=== PATIENT | female | born 1940 | race Asian ===

== ENCOUNTER 2017-01-14 07:36 | Day surgery (SDC) | payer MEDICARE, OTHER ==
[~2017-01-14] VITALS: Ht 157.5 cm; Wt 66.4 kg
[~2017-01-14 07:36] MED LIST: DiphenhydrAMINE HCL 50 MG/ML VIAL IVP ONE; SODIUM CHLORIDE 0.9% 1,000 ML IV ONE; SODIUM CHLORIDE 0.9% 1,000 ML IV SCH
[2017-01-14 07:59] LABS: BASOPHILS # (AUTO) 0.06 K/uL (0.00-0.20); BASOPHILS % (AUTO) 0.7 % (0.0-2.0); EOSINOPHILS % (AUTO) 6.06 % (1.0-6.0); LYMPHOCYTES # (AUTO) 1.3 K/uL (1.0-4.8); LYMPHOCYTES % (AUTO) 12.8 % (22.0-44.0); MEAN CORPUSCULAR HEMOGLOBIN 28.5 pg (26.0-34.0); MEAN CORPUSCULAR HGB CONC 32.3 G/dL (31.0-37.0); MEAN CORPUSCULAR VOLUME 88 fL (80-100); MONOCYTES # (AUTO) 0.7 K/uL (0.1-1.0); MONOCYTES % (AUTO) 6.8 % (2.0-9.0); NEUTROPHILS # (AUTO) 7.3 K/uL (1.8-7.7); NEUTROPHILS % (AUTO) 73.6 % (40.0-70.0); PLATELET COUNT (AUTO) 373 K/uL (150-450); RED CELL DISTRIBUTION WIDTH 14.7 % (11.5-14.5)
[2017-01-14] MEDS ORDERED: OMEP20 PO (08:04)
[2017-01-14] MEDS ORDERED: ASPI81 PO (08:04)
[2017-01-14] MEDS ORDERED: ATOR20TA86 PO (08:04)
[2017-01-14] MEDS ORDERED: CALC-1038 PO (08:04)
[2017-01-14] MEDS ORDERED: AMLO-511 PO (08:04)
[2017-01-14] MEDS ORDERED: [UNRECOGNIZED DRUG - OTHER] PO (08:04)
[2017-01-14] MEDS ORDERED: KDUR20 PO (08:04)
[2017-01-14] MEDS ORDERED: METF500T4 PO (08:04)
[2017-01-14] MEDS ORDERED: METO50 PO (08:04)
[2017-01-14] MEDS ORDERED: [UNRECOGNIZED DRUG - OTHER] OU (08:04)
[2017-01-14] MEDS ORDERED: BLINK EYE OU (08:04)
[2017-01-14] MEDS ORDERED: LOSA50TA37 PO (08:04)
[2017-01-14] MEDS ORDERED: OLOP2.5D5 OU (08:04)
[2017-01-14] MEDS ORDERED: CLOP75 PO (08:04)
[2017-01-14] MEDS ORDERED: INSLAN SQ (08:04)
[2017-01-14] MEDS ORDERED: FURO20 PO (08:04)
[2017-01-14] MEDS ORDERED: HYDR-2924 PO (08:04)
[2017-01-14] MEDS ORDERED: ALPR0.5T8 PO (08:04)
[2017-01-14 08:08] LABS: PROTHROMBIN TIME 10.9 SEC (9.4-11.6)
[2017-01-14 08:19] LABS: CALCIUM, TOTAL 8.9 mg/dL (8.8-10.5); CREATININE 1.54 mg/dL (0.60-1.30); POTASSIUM 3.9 mmol/L (3.5-5.1)
[2017-01-14 08:33] LABS: ALBUMIN 3.8 g/dL (3.4-5.0); BILIRUBIN,TOTAL 0.7 mg/dL (0.1-1.0); THYROID STIMULATING HORMONE 2.34 uIU/mL (0.36-3.74); TOTAL PROTEIN, SERUM 8.3 g/dL (6.4-8.2)
[2017-01-14] MEDS ORDERED: BENZOCAINE 20% 50 MCG/SPRAY 57 GM ONE (09:27)
[2017-01-14] MEDS ORDERED: FentaNYL CITRATE-PF 100 MCG/2 ML VIAL ONE (09:28)
[2017-01-14] MEDS ORDERED: MIDAZOLAM HCL 2 MG/2 ML VIAL ONE ×2 (09:28→10:15)
[2017-01-14 09:30] VITALS: BP 148/72
[2017-01-14] MEDS ORDERED: FentaNYL CITRATE-PF 100 MCG/2 ML VIAL IVP ONE (10:15)
[2017-01-14] MEDS ORDERED: BENZOCAINE 20% 11.9 GM GEL TP ONE ×2 (10:15→10:30)
[2017-01-14] MEDS ORDERED: MIDAZOLAM HCL 2 MG/2 ML VIAL IVP ONE ×3 (10:15→10:30)
[2017-01-14] MEDS ORDERED: BENZOCAINE 20% 50 MCG/SPRAY 57 GM TP ONE ×2 (10:30→10:45)
== END 2017-01-14 12:55 | disposition home or self-care (01) ==
LOC: CATHLAB 07:36
PROVIDERS: ATTEND Internal Medicine Interventional Cardiology
DX: I48.91 Unspecified atrial fibrillation (principal); I34.0 Nonrheumatic mitral (valve) insufficiency; I36.1 Nonrheumatic tricuspid (valve) insufficiency; I73.9 Peripheral vascular disease, unspecified; Z95.1 Presence of aortocoronary bypass graft; E11.9 Type 2 diabetes mellitus without complications; Z79.01 Long term (current) use of anticoagulants
CPT/HCPCS: 36415; 71010; 80053; 84443; 85025; 85610; 85730; 93005; 93312; 93325; J2250; J3010; J7030

== ENCOUNTER 2017-04-16 09:03 | Day surgery (SDC) | payer MEDICARE, OTHER ==
[~2017-04-16] VITALS: Ht 157.5 cm; Wt 65.0 kg
[~2017-04-16 09:03] MED LIST changes: +ALPR0.5T8 PO; +AMLO-511 PO; +ASPI81 PO; +ATOR20TA86 PO; +BLINK EYE OU; +CALC-1038 PO; +CLOP75 PO; -DiphenhydrAMINE HCL 50 MG/ML VIAL IVP ONE; +FURO20 PO; +HYDR-2924 PO; +INSLAN SQ; +KDUR20 PO; +LOSA50TA37 PO; +METF500T4 PO; +METO50 PO; +OLOP2.5D5 OU; +OMEP20 PO; -SODIUM CHLORIDE 0.9% 1,000 ML IV ONE; -SODIUM CHLORIDE 0.9% 1,000 ML IV SCH; +[UNRECOGNIZED DRUG - OTHER] OU; +[UNRECOGNIZED DRUG - OTHER] PO
[2017-04-16] MEDS ORDERED: 0.9% SODIUM CHLORIDE 10 ML SYRINGE IVP ONE (09:10)
[2017-04-16] MEDS ORDERED: 0.9% SODIUM CHLORIDE 10 ML SYRINGE IVP PRN (09:30)
[2017-04-16] MEDS ORDERED: METOPROLOL TARTRATE 50 MG TABLET PO ONE (09:30)
[2017-04-16] MEDS ORDERED: METOPROLOL TARTRATE 50 MG TABLET ONE (09:48)
[2017-04-16 09:56] LABS: CREATININE 1.64 mg/dL (0.60-1.30); POTASSIUM 3.8 mmol/L (3.5-5.1)
[2017-04-16] MEDS ORDERED: IOVERSOL 350 MG/ML 100 ML VIAL ONE (11:04)
[2017-04-16] MEDS ORDERED: METOPROLOL TARTRATE 5 MG/5 ML VIAL ONE (11:08)
[2017-04-16] MEDS ORDERED: NITROGLYCERIN 400 MCG/SUBLINGUAL SPRAY 4.9 GM BOTTLE SL ONE (11:13)
[2017-04-16] MEDS ORDERED: METOPROLOL TARTRATE 5 MG/5 ML VIAL IVP ONE ×2 (11:19→11:24)
== END 2017-04-16 12:15 | disposition home or self-care (01) ==
LOC: SURGERY 09:03 → EDSTATUS 11:00 → SURGERY 12:15
PROVIDERS: ATTEND Internal Medicine Interventional Cardiology
DX: I48.91 Unspecified atrial fibrillation (principal); I77.89 Other specified disorders of arteries and arterioles; I20.9 Angina pectoris, unspecified; I10 Essential (primary) hypertension; E11.9 Type 2 diabetes mellitus without complications; F41.9 Anxiety disorder, unspecified; M19.90 Unspecified osteoarthritis, unspecified site; F32.9 Major depressive disorder, single episode, unspecified; Z95.5 Presence of coronary angioplasty implant and graft; Z95.1 Presence of aortocoronary bypass graft; Z98.42 Cataract extraction status, left eye; Z98.41 Cataract extraction status, right eye; Z79.82 Long term (current) use of aspirin; Z79.4 Long term (current) use of insulin; Z79.84 Long term (current) use of oral hypoglycemic drugs; Z79.899 Other long term (current) drug therapy
CPT/HCPCS: 36415; 75574; 80048; 93005; J3490; Q9967